=== PATIENT | female | born 1950 | race Caucasian/White ===

== ENCOUNTER 2022-02-03 22:12 | Emergency (ER) | payer MEDICARE, BC ==
[~2022-02-03] VITALS: Ht 162.6 cm; Wt 77.0 kg
[~2022-02-03 22:12] MED LIST: ASPIRIN EC81 MG PO; MULTIVITAMINS1 EAC7 PO; ZANTAC150 MG PO
[2022-02-03] MEDS ORDERED: VASCEPA1 GM PO (22:40)
[2022-02-03] MEDS ORDERED: TRAZODONE HCL50 MG PO (22:40)
[2022-02-03] MEDS ORDERED: FLUCONAZOLE150 MG PO (22:40)
[2022-02-03] MEDS ORDERED: MONTELUKAST SOD10 MG (22:41)
[2022-02-03] MEDS ORDERED: EZETIMIBE10 MG PO (22:41)
--- NOTE | 2022-02-05 18:20 | EKG ---
[facility] [address] [facility] [place] [id number] Signed Normal sinus rhythm Minimal voltage criteria for LVH, may be normal variant ( R in aVL ) Anterolateral infarct , age undetermined Abnormal ECG No previous ECGs available Confirmed by MIKE MADRIGAL MD ([id number] on 02/05/2022 6:19:48 PM Electronically Signed By: MIKE MADRIGAL MD 02/05/22 182 PATIENT NAME: VALDO ROBLERORasta HSIEHE Electrocardiogram DATE OF : 46 PHYSICIAN: MIKE MADRIGAL MD REPORT #: [id number] REPORT IS CONFIDENTIAL AND NOT TO BE RELEASED WITHOUT AUTHORIZATION
== END 2022-02-04 00:49 | disposition home or self-care (01) ==
LOC: ED 22:12
DX: I95.2 Hypotension due to drugs (principal); I10 Essential (primary) hypertension; E78.5 Hyperlipidemia, unspecified; Z88.0 Allergy status to penicillin; Z88.2 Allergy status to sulfonamides; Z88.5 Allergy status to narcotic agent; Z91.010 Allergy to peanuts; Z91.02 Food additives allergy status; Z79.899 Other long term (current) drug therapy; Z79.82 Long term (current) use of aspirin
CPT/HCPCS: 36415; 80053; 83735; 84484; 85025; 93005; 93010; 99284-25